=== PATIENT | male | born 1985 | race Caucasian/White ===

== ENCOUNTER → 2023-11-23 17:12 | Outpatient (REF) | payer BC, SELFPAY | LOC: RAD 17:12 | PROVIDERS: ATTENDING PHYSICIAN Physician Assistant; FAMILY PHYSICIAN Nurse Practitioner Family | DX: C73 Malignant neoplasm of thyroid gland (principal); E89.0 Postprocedural hypothyroidism | CPT/HCPCS: 76536 ==

== ENCOUNTER → 2024-10-25 13:05 | Outpatient (REF) | payer BC, SELFPAY | LOC: HWRAD 13:05 | PROVIDERS: ATTENDING PHYSICIAN Physician Assistant; FAMILY PHYSICIAN Nurse Practitioner Family | DX: C73 Malignant neoplasm of thyroid gland (principal); E89.0 Postprocedural hypothyroidism | CPT/HCPCS: 76536 ==

== ENCOUNTER → 2025-04-09 10:44 | Outpatient (REF) | payer OTHER, SELFPAY | LOC: OHS 10:44 | PROVIDERS: ATTENDING PHYSICIAN Nurse Practitioner Family | DX: Z23 Encounter for immunization (principal) | CPT/HCPCS: 36415; 86480; 86706; 86735; 86762; 86765; 86787 ==

== ENCOUNTER → 2025-07-19 19:48 | Outpatient (REF) | payer OTHER, SELFPAY | LOC: MRI 3T 19:48 | PROVIDERS: ATTENDING PHYSICIAN Psychiatry & Neurology Neurology; FAMILY PHYSICIAN Nurse Practitioner Family | DX: G44.321 Chronic post-traumatic headache, intractable (principal); R25.1 Tremor, unspecified | CPT/HCPCS: 70553; A9575 ==